=== PATIENT | male | born 1980 | race Caucasian/White ===

== ENCOUNTER 2018-03-01 15:16 | Outpatient (CLI) | END 2018-03-01 15:17 | disposition home or self-care (01) ==

== ENCOUNTER 2018-03-12 13:13 | Emergency (ER) | payer MEDICAID ==
[2018-03-12 13:59] LABS: PT - PROTHROMBIN TIME 11.8 secs (9.9-12.6)
[2018-03-12 14:03] LABS: ALBUMIN 4.1 g/dL (3.2-5.5); ALBUMIN/GLOBULIN RATIO 1.4 (1.0-2.2); BILIRUBIN,TOTAL 0.7 mg/dL (0.2-1.0); CREATININE 0.9 mg/dL (0.6-1.2)
[2018-03-12 14:16] LABS: HGB - HEMOGLOBIN 14.4 g/dL (14.0-18.0); MEAN CORPUSCULAR HEMOGLOBIN 32.2 pg (27.0-31.0); MEAN CORPUSCULAR HGB CONC 33.8 g/dL (32.0-36.0); MEAN CORPUSCULAR VOLUME 95.1 fL (80.0-94.0); MEAN PLATELET VOLUME 7.4 fL (7.4-11.4); RED BLOOD COUNT 4.49 10^6/uL (4.70-6.10); RED CELL DISTRIBUTION WIDTH 13.1 % (12.0-15.0); WHITE BLOOD COUNT 7.6 x10^3/uL (4.8-10.8)
--- NOTE | 2018-03-12 15:03 | ED Physician Documentation ---
PD HPI NVD - Stated complaint Stated Complaint: DIARRHEA/STOMACH CRAMPS - Chief complaint Chief Complaint: Abd Pain - History obtained from History obtained from: Patient - History of Present Illness Timing - onset: How many weeks ago (2 weeks (16 days)) Timing - duration: Weeks (2) Timing - details: Abrupt onset, Still present, Waxing and waning Associated symptoms: Abdominal pain (epigastric area just the past 3-4 days. With nausea. Noted black stool yesterday and today (had taken Pepto Bismol though).). No: Fever Contributing factors: No: Sick contact, Bad food, Travel, Recent antibiotics Similar symptoms before: Has not had sx before Recently seen: Not recently seen Review of Systems Constitutional: reports: Myalgias. denies: Fever, Chills Nose: denies: Rhinorrhea / runny nose, Congestion Throat: denies: Sore throat Cardiac: denies: Chest pain / pressure Respiratory: denies: Cough GI: reports: Abdominal Pain (epigastric), Nausea, Diarrhea, Bloody / black stool (black colored the past 2-3 days). denies: Vomiting, Constipation : denies: Dysuria, Frequency Neurologic: reports: Generalized weakness. denies: Focal weakness, Numbness, Near syncope PD PAST MEDICAL HISTORY - Past Medical History Cardiovascular: Valve disorder Respiratory: Other Endocrine/Autoimmune: None GI: None, Chronic constipation HEENT: Chronic vision loss Psych: Depression Musculoskeletal: Chronic back pain Derm: None - Past Surgical History Past Surgical History: Yes Ortho: Carpal Tunnel surgery - Present Medications Home Medications: Ambulatory Orders Medication Instructions Recorded Confirmed Famotidine [Pepcid] 20 mg PO ONCE #30 tablet 03/12/18 HYDROcod/ACETAM 5/325 [[place] 5/325] 1 tab PO Q6H PRN #15 tablet 03/12/18 Lidocaine Viscous 2% [Xylocaine 5 ml PO Q4H PRN #1 bottle 03/12/18 Viscous 2%] Ondansetron Odt [Zofran] 4 mg TL Q6H PRN #15 tablet 03/12/18 - Allergies Allergies/Adverse Reactions: Allergies Allergy/AdvReac Type Severity Reaction Status Date / Time No Known Drug Allergies Allergy Verified 03/12/18 13:21 - Social History Does the pt smoke?: Yes Smoking Status: Current every day smoker Does the pt drink ETOH?: Yes Does the pt have substance abuse?: Yes - Immunizations Immunizations are current?: Yes Immunizations: TDAP >10years/unknown - POLST Patient has POLST: No PD ED PE NORMAL - Vitals Vital signs reviewed: Yes - General General: Alert and oriented X 3, No acute distress, Well developed/nourished - HEENT HEENT: Pharynx benign. No: Moist mucous membranes - Neck Neck: Supple, no meningeal sign, No adenopathy - Cardiac Cardiac: RRR, No murmur - Respiratory Respiratory: Clear bilaterally - Abdomen Abdomen: Normal bowel sounds, Soft, Non distended, No organomegaly, Other ( tender in epigastric area without percussion nor rebound tenderness. ) - Rectal Rectal: Deferred (he had BM that was tested) - Back Back: No CVA TTP - Derm Derm: Normal color, Warm and dry - Extremities Extremities: No tenderness to palpate, Normal ROM s pain, No edema, No calf tenderness / cord - Neuro Neuro: Alert and oriented X 3, No motor deficit, Normal speech Results - Vitals Vitals: Oxygen O2 Source Room air - Labs Labs: Microbiology 03/12/18 14:52 Campylobacter Antigen Assay - Final Stool Stool Culture - Final NO SALMONELLA, SHIGELLA, E. COLI 0157, AEROMONAS, EDWARDSIELLA, PLESIOMONAS, YERSINIA, OR VIBRIO ISOLATED. NO SHIGA TOXIN 1 OR 2 DETECTED. 03/12/18 14:52 Clostridium difficile (PCR) - Final Stool Laboratory Tests 03/12/18 03/12/18 03/12/18 13:41 13:41 13:41 WBC 7.6 RBC 4.49 L Hgb 14.4 Hct 42.7 MCV 95.1 H MCH 32.2 H MCHC 33.8 RDW 13.1 Plt Count 277 MPV 7.4 PT 11.8 INR 1.0 APTT 36.7 H Sodium Potassium Chloride Carbon Dioxide Anion Gap BUN Creatinine Estimated GFR (MDRD) Glucose Calcium Total Bilirubin AST ALT Alkaline Phosphatase Total Protein Albumin Globulin Albumin/Globulin Ratio Lipase Stool H. pylori Ag Blood Type O POSITIVE Antibody Screen NEGATIVE 03/12/18 03/12/18 13:41 15:42 WBC RBC Hgb Hct MCV MCH MCHC RDW Plt Count MPV PT INR APTT Sodium 136 Potassium 3.6 Chloride 102 Carbon Dioxide 29 Anion Gap 5.0 L BUN 8 Creatinine 0.9 Estimated GFR (MDRD) 95 Glucose 98 Calcium 9.0 Total Bilirubin 0.7 AST 22 ALT 19 Alkaline Phosphatase 40 L Total Protein 7.0 Albumin 4.1 Globulin 2.9 Albumin/Globulin Ratio 1.4 Lipase 23 Stool H. pylori Ag NEGATIVE Blood Type Antibody Screen PD MEDICAL DECISION MAKING - ED course Complexity details: reviewed results (he did have stool here and it was very black and tested guiac negative. Presume the Pepto. Stool sent to lab due to the persistent diarrhea, though was moderately formed here. ), considered differential, d/w patient - Sepsis Event Vital Signs: Oxygen O2 Source Room air Departure - Departure Disposition: Home, Self Care Clinical Impression: Upper abdominal pain Diarrhea Qualifiers: Diarrhea type: unspecified type Qualified Code(s): R19.7 - Diarrhea, unspecified Condition: Stable Record reviewed to determine appropriate education?: Yes Instructions: ED Epigastric Pain [facility] Follow-Up: Edie Mcbride MD [Primary Care Provider] - Prescriptions: Famotidine [Pepcid] 20 mg PO ONCE #30 tablet HYDROcod/ACETAM 5/325 [[place] 5/325] 1 tab PO Q6H PRN #15 tablet PRN Reason: Pain Lidocaine Viscous 2% [Xylocaine Viscous 2%] 5 ml PO Q4H PRN #1 bottle PRN Reason: Pain Ondansetron Odt [Zofran] 4 mg TL Q6H PRN #15 tablet PRN Reason: Nausea / Vomiting Comments: Your stool test negative for blood. Your blood count is good as well. Your pain sounds like gastritis or ulcer although with the diarrhea for 2 weeks it could also be infectious. The stool studies will take a day or 2 for the result. Will start medication presuming a gastritis or irritated stomach. Take famotidine daily for the next month. Ondansetron if needed for nausea. Use antacids such as Maalox or Mylanta rather than Pepto-Bismol so it does not cause dark black stool. Hydrocodone as needed for pains. You can use lidocaine with antacid if needed for stomach pains. Small frequent fluids and bland food. Follow-up with your primary care in the next few days, call Wednesday for an appointment. Discharge Date/Time: 03/12/18 16:20
[2018-03-12] MEDS ORDERED: ONDANSETRON ODT 4 MG TABLET TL STA (15:30)
[2018-03-12] MEDS ORDERED: FAMOTIDINE 20 MG TABLET PO STA (15:31)
[2018-03-12] MEDS ORDERED: LIDOCAINE VISCOUS 2% 15 ML UDC MM STA (15:31)
[2018-03-12] MEDS ORDERED: HYDROcod/ACETAM 5/325 MG TABLET PO STA (15:31)
[2018-03-12] MEDS ORDERED: MAG HYDROX/AL HYDROX/SIMETH 30 ML UDC PO STA (15:31)
[2018-03-12 16:16] VITALS: BP 126/81
[2018-03-12 16:18] LABS: H. PYLORIS ANTIGEN STL NEGATIVE (Negative)
== END 2018-03-12 16:20 | disposition home or self-care (01) ==
LOC: ED 13:13
DX: R10.13 Epigastric pain (principal); R19.7 Diarrhea, unspecified
CPT/HCPCS: 36415; 80053; 83690; 85027; 85610; 85730; 86850; 86900; 86901; 87045; 87046; 87338; 87493; 99283; A9270; Q0162

== ENCOUNTER 2018-06-22 08:23 | Emergency (ER) | payer MEDICAID ==
[2018-06-22 08:29] VITALS: BP 128/74
[2018-06-22] MEDS ORDERED: DEXAMETHASONE 10 MG/ML VIAL PO STA (08:47)
--- NOTE | 2018-06-22 08:49 | ED Physician Documentation ---
PD HPI DYSPNEA - Stated complaint Stated Complaint: SOA/CP - Chief complaint Chief Complaint: Resp - History obtained from History obtained from: Patient - History of Present Illness Timing - onset: How many days ago (6) Timing - onset during: Rest Timing - duration: Days (6) Timing - details: Gradual onset, Still present Inciting event(s): URI, Exposure (ie smoke) Improved by: Rest Worsened by: Exertion Associated symptoms: Cough, Wheezing Similar symptoms before: Diagnosis (bronchitis) Recently seen: Not recently seen - Additional information Additional information: 37-year-old male heavy smoker has developed a cough and congestion with wheezing. He is coughing up white or clear phlegm. He denies any fever associated with this. He states that he got some bad news regarding his daughter and is under a lot of stress smoking more than usual. He wants tonight to go home and place a nicotine patch and never smoke again. He is last had a course of prednisone for bronchitis about 2 years ago. Review of Systems Constitutional: denies: Fever Eyes: denies: Decreased vision Ears: denies: Ear pain Nose: reports: Congestion. denies: Rhinorrhea / runny nose Throat: reports: Sore throat Cardiac: denies: Chest pain / pressure, Palpitations Respiratory: reports: Dyspnea, Cough, Wheezing GI: denies: Abdominal Pain : denies: Dysuria, Frequency Skin: denies: Rash Musculoskeletal: denies: Neck pain PD PAST MEDICAL HISTORY - Past Medical History Past Medical History: Yes Cardiovascular: Valve disorder Respiratory: Other Endocrine/Autoimmune: None GI: None, Chronic constipation HEENT: Chronic vision loss Psych: Depression Musculoskeletal: Chronic back pain Derm: None - Past Surgical History Past Surgical History: Yes Ortho: Carpal Tunnel surgery - Present Medications Home Medications: Ambulatory Orders Medication Instructions Recorded Confirmed Famotidine [Pepcid] 20 mg PO ONCE #30 tablet 03/12/18 HYDROcod/ACETAM 5/325 [[place] 5/325] 1 tab PO Q6H PRN #15 tablet 03/12/18 Lidocaine Viscous 2% [Xylocaine 5 ml PO Q4H PRN #1 bottle 03/12/18 Viscous 2%] Ondansetron Odt [Zofran] 4 mg TL Q6H PRN #15 tablet 03/12/18 Albuterol Sulf [Ventolin Hfa 1 - 2 puffs INH Q4HR PRN #1 inhaler 06/22/18 Inhaler] predniSONE [Deltasone] 40 mg PO DAILY 5 Days #10 tablet 06/22/18 - Allergies Allergies/Adverse Reactions: Allergies Allergy/AdvReac Type Severity Reaction Status Date / Time No Known Drug Allergies Allergy Verified 06/22/18 08:29 - Social History Does the pt smoke?: Yes Smoking Status: Current every day smoker Does the pt drink ETOH?: Yes Does the pt have substance abuse?: Yes - Immunizations Immunizations are current?: Yes Immunizations: TDAP >10years/unknown - POLST Patient has POLST: No PD ED PE NORMAL - Vitals Vital signs reviewed: Yes (normal ) - General General: Alert and oriented X 3, No acute distress, Well developed/nourished - HEENT HEENT: Atraumatic, PERRL, EOMI, Ears normal, Moist mucous membranes, Pharynx benign - Neck Neck: Supple, no meningeal sign, No bony TTP - Cardiac Cardiac: RRR, No murmur - Respiratory Respiratory: No respiratory distress, Other (tight wheezes in the bases and diminished air movement) - Abdomen Abdomen: Soft, Non tender - Back Back: No CVA TTP, No spinal TTP - Derm Derm: Normal color, Warm and dry, No rash - Extremities Extremities: No deformity, No edema - Neuro Neuro: Alert and oriented X 3, 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 He does not have any production of yellow or green phlegm and I do not believe antibiotics will be beneficial in his course. He is prescribed albuterol and a short course of prednisone. Departure - Departure Disposition: 01 Home, Self Care Clinical Impression: Bronchitis Condition: Stable Instructions: ED Bronchitis Asthmatic Follow-Up: Edie Mcbride MD [Primary Care Provider] - Prescriptions: Albuterol Sulf [Ventolin Hfa Inhaler] 1 - 2 puffs INH Q4HR PRN #1 inhaler PRN Reason: Shortness Of Air/Wheezing predniSONE [Deltasone] 40 mg PO DAILY 5 Days #10 tablet
== END 2018-06-22 08:59 | disposition home or self-care (01) ==
LOC: ED 08:23
DX: J40 Bronchitis, not specified as acute or chronic (principal); F17.200 Nicotine dependence, unspecified, uncomplicated
CPT/HCPCS: 99283